=== PATIENT | male | born 1960 | race Hispanic/Latino ===

== ENCOUNTER 2016-09-23 07:08 | Day surgery (SDC) | payer MEDICAID ==
[2016-09-12 13:36] VITALS: BMI 30.7
[2016-09-23] MEDS ORDERED: Propofol 10 mg/ml Inj (20 ML) ONE (08:56)
[2016-09-23] MEDS ORDERED: Lidocaine 2% Inj (20ml) ONE (09:18)
[2016-09-23] MEDS ORDERED: Lactated Ringer's 1,000 ML IV SCH (09:45)
[2016-09-23 10:33] VITALS: BP 135/84; PULSE 66; RESP 16; TEMP 97.6; O2SAT 100
== END 2016-09-23 10:54 | disposition home or self-care (01) ==
LOC: ENDO 07:08
PROVIDERS: ATTEND Internal Medicine
DX: K57.30 Diverticulosis of large intestine without perforation or abscess without bleeding (principal); K64.8 Other hemorrhoids; K64.4 Residual hemorrhoidal skin tags; E11.9 Type 2 diabetes mellitus without complications; I25.10 Atherosclerotic heart disease of native coronary artery without angina pectoris
CPT/HCPCS: 45380; 82948; 88305; J2704; J7040; J7120

== ENCOUNTER 2018-07-15 12:23 | Outpatient (CLI) | payer MEDICAID | END 2018-07-15 12:24 | disposition home or self-care (01) | LOC: RAD 12:23 ==